=== PATIENT | female | born 1950 | race Caucasian/White ===

== ENCOUNTER 2021-10-17 09:24 | Outpatient (CLI) | payer MEDICARE, SELFPAY ==
--- NOTE | ~2021-10-17 | XR_ITS ---
EXAMINATION: XR chest 1V, XR abdomen/kub 1V DATE: 10/17/2021 10:21 INDICATION: Assess for retained spinal stimulator prior to MRI TECHNIQUE: 1. PA view of the chest was obtained. 2. Upright AP view of the abdomen and pelvis was obtained. COMPARISON: None FINDINGS: Chest: 1 tiny punctate density projects over the central canal the midthoracic spine likely representing the marker of the distal tip of an intrathecal pain pump. No spinal stimulator leads identified. Surgica l clips along the left side of the superior mediastinum. Focal airspace opacity projecting over the s capula and the left upper lung zone. No pulmonary edema, pleural effusion or pneumothorax. The cardio mediastinal silhouette is normal. Callus formation about a couple of old rib fractures at the lateral right lower lung zone. There are a few additional old healed left-sided rib fractures. Old healed fr acture at the right humeral neck. Left rotator cuff arthropathy with mild cephalad subluxation of the humeral head with respect to the glenoid. KUB: A few lower and upper lumbar compression/burst fractures with L2 vertebroplasty. Lower lumbar posteri or spinal fusion with bilateral vertical reginaldo and pedicle screw fixation. The intrathecal pain pump pr ojects over the left side of the pelvis. No dilated loops of gas-filled bowel to suggest obstruction. IMPRESSION: 1. Intrathecal pain pump with distal tip of the catheter projecting over the central canal at the mid thoracic spine. No evident retained spinal stimulator or stimulator leads. Additional postoperative changes detailed above. 2. Indeterminate airspace opacity in the left upper lung zone which could represent atelectasis, pneu monia or indeterminate pulmonary nodule. Recommend further evaluation with chest CT. Dr. Yip dis cussed these findings Vandana Andino in Dr. Tubbs's office at 2:00 PM. Reviewed, dictated and finalized at location A. IMPRESSION: 1. Intrathecal pain pump with distal tip of the catheter projecting over the ce ntral canal at the mid thoracic spine. No evident retained spinal stimulator or stimulator leads. Additional postoperative changes detailed above. 2. Indeterminate airspace opacity in the left upper lung zone which could repre sent atelectasis, pneumonia or indeterminate pulmonary nodule. Recommend furthe r evaluation with chest CT. Dr. Yip discussed these findings Vandana stokes in Dr. Tubbs's office at 2:00 PM.
--- NOTE | ~2021-10-17 | MR_ITS ---
EXAMINATION: MR thoracic spine wo con DATE: 10/17/2021 11:14 INDICATION: Age-related osteoporosis with current pathologic fracture of vertebral body. TECHNIQUE: Magnetic resonance imaging (MRI) of the thoracic spine was performed without intravenous c ontrast. COMPARISON: None FINDINGS: There is 15 degrees dextroscoliosis of mid thoracic spine. There is 13 degrees levoscoliosi s of cervicothoracic spine and 16 degrees levoscoliosis of thoracolumbar spine. There are chronic com pression fractures of C7 and T4. There are chronic burst fractures of T6 and T11. There is a chronic compression fracture of L1 with changes of vertebroplasty. There is a burst fracture of inferior endp late of T8 with 2/5 loss of height, bone marrow edema, and retropulsion of bone 2 mm into central spi nal canal. There is mildly decreased disc height at multiple levels. There is moderately decreased di sc height at T6-T7. At T1-T2, there is a right central extrusion with mild central canal stenosis. At T8-T9, there is a central protrusion with mild central canal stenosis. There is mild central canal s tenosis at T11. At T4-L1, the disc is bulging with mild central canal stenosis. There is syringohydro myelia at T7 and T8 with maximum diameter of 2 mm. There is multilevel facet joint osteoarthritis. Th ere is mild neural foraminal stenosis at many levels bilaterally. On the right, there is moderate caridad ral foraminal stenosis at T8-T9. On the left, there is moderate neural foraminal stenosis at T5-T6, T 6-T7, T7-T8, T8-T9, T9-T10, and T10-T11. IMPRESSION: 1. T8 burst fracture, likely acute or subacute. 2. Moderate thoracic spondylosis. 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 4. Scoliosis. Reviewed, dictated and finalized at location A.
== END 2021-10-17 09:25 | disposition home or self-care (01) ==
PROVIDERS: Visit Provider Nurse Practitioner Family
DX: M80.08XA Age-related osteoporosis with current pathological fracture, vertebra(e), initial encounter for fracture (principal); M41.9 Scoliosis, unspecified; S22.051A Stable burst fracture of T5-T6 vertebra, initial encounter for closed fracture; S22.081A Stable burst fracture of T11-T12 vertebra, initial encounter for closed fracture; S12.601A Unspecified nondisplaced fracture of seventh cervical vertebra, initial encounter for closed fracture; S22.040A Wedge compression fracture of fourth thoracic vertebra, initial encounter for closed fracture; M47.814 Spondylosis without myelopathy or radiculopathy, thoracic region; M48.04 Spinal stenosis, thoracic region
CPT/HCPCS: 71045; 72146; 74018

== ENCOUNTER → 2022-08-13 10:27 | Outpatient (CLI) | payer MEDICARE, SELFPAY ==
--- NOTE | ~2022-08-13 | XR_ITS ---
EXAMINATION: XR lumbar spine min 4V DATE: 08/13/2022 11:00 INDICATION: Low back pain. TECHNIQUE: 5 views of lumbar spine including flexion and extension views were obtained. COMPARISON: Lumbar spine MRI 08/13/2022 FINDINGS: There is 22 degrees levoscoliosis of thoracolumbar spine. There are changes of posterior fu johanna procedure L4-L5 with pedicle screws. There is a burst fracture of L5 with less than 1/5 loss of height. There is a chronic burst fracture of T12. There is a chronic compression fracture of L2 with changes of vertebroplasty. There are changes of vertebroplasty at T9. There is 4 mm anterolisthesis o f L3 on L4. There is mildly decreased disc height at L1-L2 and severely decreased disc height at L2-L 3 and L3-L4. The spine is hypomobile with flexion and extension. IMPRESSION: 1. Acute versus subacute burst fracture of L5 with less than 1/5 loss of height better seen by MRI. 2. Severe lumbar spondylosis. 3. Thoracolumbar levoscoliosis. 4. Posterior fusion procedure at L4-L5. Reviewed, dictated and finalized at location A.
--- NOTE | ~2022-08-13 | MR_ITS ---
EXAMINATION: MR lumbar spine wo con DATE: 08/13/2022 12:10 INDICATION: Radiculopathy, lumbar region. Low back pain. TECHNIQUE: Magnetic resonance imaging (MRI) of the lumbar spine was performed without intravenous con trast. Sequences included sagittal T2-weighted FSE, sagittal T2-weighted FS FSE, sagittal T1-weighted FSE, and axial T2-weighted FSE. COMPARISON: Lumbar spine radiographs 08/13/2022 FINDINGS: There is 20 degrees dextroscoliosis of lumbar spine and 25 degrees levoscoliosis of thoraco lumbar spine. There are changes of posterior fusion procedure at L4-L5 with pedicle screws. There is 3 mm anterolisthesis of L3 on L4. There is a chronic compression fracture of T11 with 1/5 loss of hei ght. There is a chronic fracture of T12 with 3/5 loss of height and retropulsion of bone 3 mm into ce ntral spinal canal. There is a chronic compression fracture of L2 with less than 1/5 loss of height a nd changes of vertebroplasty. There is a horizontal fracture through L5 vertebral body and the superintendent renting managing ior elements with edema-like marrow signal intensity without height loss. The fracture is inferior to the L5 pedicle screws. There is moderately decreased disc height at L1-L2, severely decreased disc h eight at L2-L3 and L3-L4, and mildly decreased disc height at L4-L5 and L5-S1. The distal spinal cord signal intensity is normal. The conus medullaris is at L2. The following disc levels are specificall y discussed: L1-L2: The disc is bulging and has an annular fissure. There is severe bilateral facet joint osteoart hritis. There is mild bilateral neural foraminal stenosis. There is mild central canal stenosis. L2-L3: The disc is bulging and has an annular fissure. There is severe bilateral facet joint osteoart hritis. There is mild right and moderate left neural foraminal stenosis. There is mild central canal stenosis. L3-L4: The disc is bulging and has an annular fissure. There is severe bilateral facet joint osteoart hritis. There is mild right and moderate left neural foraminal stenosis. There is mild central canal stenosis. L4-L5: The disc is bulging and has an annular fissure. There is moderate bilateral facet joint hypert rophy. There is mild bilateral neural foraminal stenosis. There is no central canal stenosis. L5-S1: The disc is bulging and has an annular fissure. There is severe bilateral facet joint osteoart hritis. There is mild bilateral neural foraminal stenosis. There is mild central canal stenosis. IMPRESSION: 1. Horizontal fracture through L5 vertebral body and the posterior elements, likely acute or subacute . 2. Severe lumbar spondylosis. 3. Lumbar dextroscoliosis and thoracolumbar levoscoliosis. 4. Posterior fusion procedure at L4-L5. Reviewed, dictated and finalized at location A. IMPRESSION: 1. Horizontal fracture through L5 vertebral body and the posterior elements, li elias acute or subacute. 2. Severe lumbar spondylosis. 3. Lumbar dextroscoliosis and thoracolumbar levoscoliosis. 4. Posterior fusion procedure at L4-L5.
== END ==
PROVIDERS: PCP Nurse Practitioner Family; Visit Provider Nurse Practitioner Family
DX: M47.26 Other spondylosis with radiculopathy, lumbar region (principal); Z98.1 Arthrodesis status
CPT/HCPCS: 72110; 72148

== ENCOUNTER 2022-08-14 10:36 | Outpatient (CLI) | payer MEDICARE, SELFPAY ==
--- NOTE | ~2022-08-14 | CT_ITS ---
EXAMINATION: CT lumbar spine wo con DATE: 08/14/2022 11:15 INDICATION: Age-related osteoporosis with current pathologic fracture. TECHNIQUE: Computed tomography (CT) of the lumbar spine was performed without intravenous contrast. A utomated exposure control and iterative reconstruction technique were employed. The dose-length produ ct was 313.19 mGy-cm. COMPARISON: Lumbar spine MRI 08/13/2022 FINDINGS: There is 18 degrees dextroscoliosis of lumbar spine. There is levoscoliosis of thoracolumba r spine. There is a chronic burst fracture of T12 with 3/5 loss of height. There is a chronic kailee johanna fracture of L2 with less than 1/5 loss of height and changes of vertebroplasty. There are change s of posterior fusion procedure at L4-L5 with pedicle screws. There is a horizontal fracture through inferior L5 vertebral body and the posterior elements. There is less than 1/5 height loss of L5 verte bral body. There is moderately decreased disc height at L1-L2 and L2-L3, severely decreased disc heig ht at L3-L4, mildly decreased disc height at L4-L5, and moderately decreased disc height at L5-S1. Pa rtially visualized is an intrathecal catheter. The following disc levels are specifically discussed: L1-L2: The disc is bulging. There is severe bilateral facet joint osteoarthritis. There is mild bilat eral neural foraminal stenosis. There is mild central canal stenosis. L2-L3: The disc is bulging. There is severe bilateral facet joint osteoarthritis. There is mild right and moderate left neural foraminal stenosis. There is mild central canal stenosis. L3-L4: The disc is bulging. There is severe bilateral facet joint osteoarthritis. There is mild right and moderate left neural foraminal stenosis. There is mild central canal stenosis. L4-L5: The disc is bulging. There is moderate bilateral facet joint hypertrophy. There is mild bilate ral neural foraminal stenosis. There is mild central canal stenosis. L5-S1: The disc is bulging. There is severe bilateral facet joint osteoarthritis. There is mild bilat eral neural foraminal stenosis. There is mild central canal stenosis. IMPRESSION: 1. Acute/subacute horizontal fracture through L5 vertebral body and the posterior elements. 2. Severe lumbar spondylosis. 3. Lumbar dextroscoliosis and thoracolumbar levoscoliosis. 4. Posterior fusion procedure at L4-L5. Reviewed, dictated and finalized at location A. IMPRESSION: 1. Acute/subacute horizontal fracture through L5 vertebral body and the posteri or elements. 2. Severe lumbar spondylosis. 3. Lumbar dextroscoliosis and thoracolumbar levoscoliosis. 4. Posterior fusion procedure at L4-L5.
== END 2022-08-14 10:37 | disposition home or self-care (01) ==
PROVIDERS: Visit Provider Nurse Practitioner Family
DX: M80.08XA Age-related osteoporosis with current pathological fracture, vertebra(e), initial encounter for fracture (principal); M47.896 Other spondylosis, lumbar region; Z98.1 Arthrodesis status
CPT/HCPCS: 72131